=== PATIENT | male | born 1955 | race Caucasian/White ===

== ENCOUNTER 2024-12-27 12:42 | Emergency (ER) | payer MEDICARE, OTHER, SELFPAY ==
[2024-12-27 12:43] VITALS: BP 166/86; PULSE 72; RESP 18; TEMP 36.6; O2SAT 99; BMI 30.4
--- NOTE | 2024-12-27 12:46 | RAD_ITS ---
PROCEDURE: HAND MIN 3 VIEWS 12/27/2024 REASON FOR EXAM: WOUND Soft tissue swelling overlying the distal index finger. No known injury. TECHNIQUE: HAND MIN 3 VIEWS Laterality: Left hand COMPARISON: None FINDINGS: Bones: No bony abnormality is seen. Joints: Normal alignment. Mild degenerative changes. Soft tissues: Overlying the distal phalanx of the index finger. No radiopaque foreign body is seen. Other: RAD/Hand Min 3 Views IMPRESSION: Soft tissue swelling overlying the distal phalanx of the index finger. No radi opaque foreign body is seen. Reading Location: [id number]
[2024-12-27 13:45] VITALS: BP 157/89; PULSE 67; RESP 16; TEMP 36.7; O2SAT 97
--- NOTE | 2024-12-27 13:49 | EDS_ITS ---
HPI History of Present Illness Chief Complaint: Wound [facility] Medical History (Updated 12/27/24 @ 13:[address] David Urbano, DO) HTN (hypertension) Diabetes Home Medications ?Medication ?Instructions ?Recorded ?Last Taken ?Type cephalexin 500 mg capsule 500 mg PO Q8H 10 days #30 ca ps 12/27/24 Unknown Rx sulfamethoxazole 800 1 tab PO BID 10 days #20 tab s 12/27/24 Unknown Rx mg-trimethoprim 160 mg tablet (Bactrim DS) Allergy/AdvReac Type Severity Reaction Status Date / Time No Known Allergies Allergy Verified 12/27/24 12:43 Social History Smoking Status: Never smoker EXAM Physical Exam Const Vital Signs: 12/27/24 12:43 12/27/24 13:45 12/27/24 14:00 Temperature 98 F 98.1 F 98.0 F Temperature Source Oral Oral Oral Pulse Rate 72 67 68 Respiratory Rate 18 16 16 Blood Pressure 166/86 H 157/89 H 154/87 H Blood Pressure Mean 112 111 109 Pulse Ox 99 97 99 Oxygen Delivery Method Room Air Room Air MDM MDM MDM Narrative Medical decision making narrative: HISTORY OF PRESENT ILLNESS: Chief complaint: Wound 69-year-old male here with concern for left index finger wound. Notes finger swollen red and bruised. Notes he is been taking Keflex for the last 3 days. Denies fever or diabetes. Denies trauma. REVIEW OF SYSTEMS: Pertinent positives: Finger pain Pertinent negatives: As per HPI PHYSICAL EXAM: Nursing triage notes reviewed, Vital signs reviewed Extremities: No edema Neuro: Intact 5/5 strength with ok sign (median), intact finger abduction (ulnar) intact wrist extension (radial n). Intact sensation in the radial, ulnar, and median nerve distributions. Skin: Erythema, induration noted to distal left digit MEDICAL DECISION MAKING: Chief Complaint: please see HPI External records reviewed: Reviewed prior imaging studies Factors affecting care: hypertension, type 2 diabetes Social determinants of health: none History obtained from others: none Consults: none [facility] Narrative: The patient was initially hemodynamically stable, afebrile and nontoxic- appearing. Exam consistent with paronychia. No sign of felon. I considered the following differential diagnosis: Cellulitis, paronychia, felon, osteomyelitis I obtained x-ray to further determine if the patient was suffering from a life- threatening etiology. ALL IMAGES (IF OBTAINED) HAVE BEEN PERSONALLY REVIEWED AND INTERPRETED BY MYSELF. X-ray was read reviewed person myself showed distal phalanx swelling but no obvious bony injury fracture dislocation or osteomyelitis The synthesis of the patient's history, physical exam, images suggest paronychia Performed a digital block and performed incision and drainage. Procedure: Incision and Drainage simple The procedure was performed by myself. Location: Left index finger Risks and benefits: Risks, benefits, and alternatives were discussed. Questions were sought and answered, and verbal consent provided for the procedure. Anesthesia: Digital block Procedure Description: After obtaining anesthesia placed an 18-gauge needle underneath the nail fold the left second digit with return of purulent fluid. The patient tolerated the procedure well without complications. The patient and/or family, caregivers express understanding. The patient and/or family, caregivers agrees with the plan. Shared decision making: I will have a discussion with the patient and or visitors regarding risk/benefits of further testing or admission. They will be made aware of of the risk/benefits inherent in this decision they will be given the opportunity to voice understanding. Total critical care time today provided was at least 0 minutes. This excludes separately billable procedures. Critical care time (if documented) is secondary to the patient having high probability of clinically significant/life threatening deterioration in the patient's condition which required my urgent intervention. Impression: 1. Acute finger pain 2. Paronychia Dispo: Discharge home This note was generated with [employer] dictation software. It may contain incorrect words, spelling, and punctuation that were not noted in review of the chart prior to signing. Radiography Diagnostic Testing: Clinical Impression(s) from Imaging Studies Hand X-Ray 12/27/24 12:46 IMPRESSION: Soft tissue swelling overlying the distal phalanx of the index finger. No radiopaque foreign body is seen. Reading Location: [id number] Discharge Plan Triage Chief Complaint: Wound ED Provider: David Urbano Dx/Rx/DC Orders Clinical Impression: Paronychia Instructions: ED Paronychia Prescriptions: New cephalexin 500 mg capsule 500 mg PO Q8H 10 Days Qty: 30 0RF sulfamethoxazole-trimethoprim [Bactrim DS] 800-160 mg tablet 1 tab PO BID 10 Days Qty: 20 0RF Primary Care Provider: Town Doctor,Out of Activity Restrictions/Additional Instructions: Thank you for trusting us with your care today! Please take Tylenol (2 pills, 650 mg), ibuprofen (2 pills, 400 mg) every 6 hours as needed for pain and fever control. Please take Bactrim and Keflex for the next 10 days. Please return to the emergency department if your symptoms change or worsen. Please follow with your primary care physician for further outpatient evaluation and management. Print Language: Icelandic Disposition Disposition: Home, Self Care
[2024-12-27 14:00] VITALS: BP 154/87; PULSE 68; RESP 16; TEMP 36.7; O2SAT 99
[2024-12-27] MEDS: Lidocaine 1% (20 ml mdv) 20 ML Vial 5 ML INFILT (14:08)
[2024-12-27] MEDS: Smz/Tmp Ds Tablet 1 TABLET PO (14:08)
[2024-12-27 15:08] VITALS: BP 148/87; PULSE 68; RESP 16; TEMP 36.8; O2SAT 99
== END 2024-12-27 15:09 | disposition home or self-care (01) ==
LOC: ED 14:20
PROVIDERS: Emergency Provider Emergency Medicine; Visit Provider Emergency Medicine
DX: L03.012 Cellulitis of left finger (principal); E11.9 Type 2 diabetes mellitus without complications; S60.022A Contusion of left index finger without damage to nail, initial encounter; I10 Essential (primary) hypertension; X58.XXXA Exposure to other specified factors, initial encounter
CPT/HCPCS: 10060; 73130; 99282